=== PATIENT | female | born 1995 | race Hispanic/Latino ===

== ENCOUNTER 2025-05-31 00:16 | Emergency (ER) | payer SELFPAY ==
[2025-05-31] VITALS (11 sets, daily range): BP systolic 105–136; BP diastolic 64–80; PULSE 59–81; BMI 27.4
--- NOTE | 2025-05-31 01:11 | ED.GENMED ---
History of Present Illness
General
Chief Complaint: Chest Pain
Source: patient
Exam Limitations: none
Time Seen by Provider: 05/31/25 00:38
Nursing documentation reviewed up to this point in time: agreed with
History of Present Illness
History of Present Illness:
30-year-old female with no past medical history presents to the ER today with concerns of 1 week of chest pain and a presyncopal episode this evening. Patient reports that the onset of chest pain was a week ago and noticed that recently has
increased in severity. The patient reports that this evening, chest pain woke her up from sleep and when she went to stand, she felt very short of breath and she almost passed out and her had to catch her from nearly fainting. She has not
experienced similar symptoms in the past. She also reports shortness of breath. She notes that the pain is under her left breast. She does not take any oral contraceptives. She was on a recent flight a few days ago but reports it was like 3
hours in nature. She denies any redness or swelling in her lower extremities. Denies any back pain. She does have a cardiac history with ACS in her grandfather at age 42. She has no personal history of cardiac disease. She feels nauseous but
denies abdominal pain. She denies any fevers or chills, she deneis any cough or flu like symptpoms.
Review of Systems
Review of Systems
All Other Systems: ROS reviewed and negative except as documented in HPI and ROS
Phy Exam
Physical Exam
Physical Exam:
General: Patient has conversational dyspnea
Skin: Warm and dry, no rashes or lesions
Head: Normocephalic, atraumatic
Eyes: Sclera non-icteric. EOMs intact.
Cardiac: Regular rate and rhythm, no murmurs, no tenderness palpation left lower chest wall
Peripheral Vascular: No lower extremity swelling or edema
Pulm: Increased respiratory rate, conversational dyspnea, lungs clear bilaterally no wheezes, rales, rhonchi
Abdomen: No abdominal tenderness to palpation
Neuro: CN II-XII intact, no focal neurologic deficits.
Psychiatric: Appropriate mood and affect.
Scores
Heart Score for Chest Pain Patients
STEMI patient?: No
History: Slightly or Non-Suspicious
ECG: Normal
Age: </= 45 years
Risk Factors: No Risk Factors
Troponin: </= Normal Limit
Heart Score for Chest Pain Patients: 0
Heart Score Risk: 2.5% MACE over next 6 weeks
Course
Orders/Labs/Results
Orders:
Orders
05/31/25 00:22
Electrocardiogram (*1) Urgent
Reason for Study: Chest Pain
Cardiac Monitoring- Treatment ONCE
EKG- Treatment ONCE
IV Insert/Care/Rem.- Treatment PRN
Test Result ONCE
O2 Therapy [RESP] Urgent
Titrate/Wean O2 to maintain O2 sat greater than (%): 90
Special Instructions: Maintain sats >/=90%
Pulse Ox/spot Check [RESP] Urgent
Quantity: 1
Special Instructions: ON ROOM AIR
05/31/25 00:52
Complete Blood Count/With Diff Urgent
Comprehensive Metabolic Panel Urgent
HCG, Serum Qualitative Screen Urgent
Comment: Notify provider if positive test present
Troponin I Urgent
05/31/25 01:09
CT Chest PE Study Urgent
Comment:
Reason For Exam: syncope, cp, dizziness
05/31/25 02:56
Morphine Sulfate 6 mg IV NOW STA
05/31/25 03:11
Ketorolac [Toradol] 15 mg IV NOW STA
05/31/25 03:15
Ketorolac [Toradol] 30 mg IV NOW STA
05/31/25 03:22
Orthostatic VS- Treatment ONCE
Abnormal Lab Results
05/31/25
00:52
RBC 4.16 L 10^6/uL
(4.20-5.40)
Hgb 11.6 L g/dL
(12.0-16.0)
Hct 34.5 L %
(37.0-47.0)
Lymphocytes % 16.8 L %
(20.5-51.1)
Chloride 108 H mmol/L
(98-107)
Carbon Dioxide 16 L mmol/L
(22-30)
Glucose 114 H mg/dl
(70-99)
05/31/25 00:52
05/31/25 00:52
Vital Signs
Initial and Last Documented VS:
Initial Vital Signs
Temp Pulse Resp BP Pulse Ox
97.4 F 92 28 136/76 100
05/31/25 00:17 05/31/25 00:17 05/31/25 00:17 05/31/25 00:17 05/31/25 00:17
Last Documented Vital Signs
Temp Pulse Resp BP Pulse Ox
98.1 F 76 14 105/69 95
05/31/25 00:42 05/31/25 04:30 05/31/25 04:30 05/31/25 04:00 05/31/25 04:30
MDM/Problems Addressed
Differential Diagnosis Includes:
- The differential diagnosis includes, in no particular order and is not limited to:
- Acute coronary syndrome
- Pulmonary embolism
- Aortic dissection
- Pneumothorax
- Pneumonia
- Pericarditis
- Gastroesophageal reflux disease
- Myocardial ischemia
- Anxiety disorders
- Arrhythmia
MDM/Problems Addressed:
30-year-old female presents to the ER today with concerns of pain under her left breast for the past week along with a presyncopal episode and shortness of breath. On exam, she appears to have increased work of breathing and appears uncomfortable
secondary to the pain. Will send for CT of the chest.
CT scan of the chest is not concerning for any signs of PE or aortic dissection. Toradol significantly improved pain and patient feeling much more comfortable. She denies lightheadedness or dizziness at this time. Suspect pleurisy. Pre-syncopal
episode prior to arrival likely vasovagal in nature. Discussed case wuth ED attending. No indication for repeat troponin considering pain has been going on for a week. I stressed follow-up with cardiology, patient will be discharged with chest pain
hotline.
Chronic conditions affecting care:
n/a
*Pulse Oximetry
SaO2: 98
Oxygen Mode of Delivery: Room air
Patient hypoxic: no
*EKG
Interpreted by ED Provider?: Yes
EKG Intrepretation Date: 05/31/25
Interpretation: normal
Comparison EKG: no comparison EKG present
Heart Rate: 87
Rate: normal
Rhythm: sinus
[place]: normal axis
Ischemia: no ischemia
*Critical Care Note
Total Time (30-74mins, 75-104mins- exclusive of procedures): Not Applicable
Data Reviewed
Review of Other/Old Records Reveals: Records (no prior ER physician documentation to review no discharge summaries to review)
Source: patient and records
Update Note
Update Note:
3:22 am: update, patient reports that her dizziness and chest pain are improving but still present. CT scan negative for PE. Will trial Toradol
ED Attending Note
-
Portions of this chart may have been created with voice recognition software.� Occasional wrong word or��sound alike� substitutions may have occurred due to the inherent limitations of voice recognition software.
Discharge Plan
Departure
Patient Disposition: Home (Routine Discharge)
Date of Disposition: 05/31/25
Time of Disposition: 04:29
Patient with high blood pressure during this ER visit?: No
Condition: Good
Discharge Problem:
Pleurisy
Instructions: Chest Pain CBC Follow Up, BLOOD PRESSURE
Prescriptions:
No Action
No Current Medications
0
Referrals:
NONE,* [Family Provider, Internal Medicine]
Activity Restrictions/Additional Instructions:
Please continue to monitor your symptoms. I recommend taking ibuprofen as needed for your pain. You can take 600 to 800 mg every 6 hours. Please do not exceed 3200 mg/day.
PLEASE RETURN TO THE ER SHOULD YOU DEVELOP FAINTING SPELL, TROUBLE BREATHING, JAW PAIN, ANY ACUTE WORSENING OF SYMPTOMS, OR ANY OTHER SIGNS CONCERNING TO YOU
Interventions
Interventions:
*Risk Screen - Suicide Last Done: 05/31/25 00:17
*General Assessment Last Done: 05/31/25 00:42
*Neglect/Abuse Screening Last Done: 05/31/25 00:17
*ED COVID-19 Vaccine History Last Done: 05/31/25 00:42
*ED Influenza Vaccine History Last Done: 05/31/25 00:42
[facility] Fall Risk Assessment Tool Last Done: 05/31/25 00:44
*Nursing Disposition Last Done: 05/31/25 04:37
ED- Cardiac Assessment Last Done: 05/31/25 00:42
Discharge Date and Time
Discharge Date/Time: 05/31/25 04:42
Print Language: SLOVAK
[2025-05-31 01:14] LABS: HCG, Serum Qualitative Screen Negative
[2025-05-31 01:21] LABS: ALT (SGPT) 22 U/L (0-35); AST (SGOT) 24 U/L (14-36); Albumin 4.5 g/dl (3.5-5.0); Alkaline Phosphatase 49 U/L (38-126); Blood Urea Nitrogen 16 mg/dl (7-17); Calcium 9.5 mg/dl (8.4-10.2); Carbon Dioxide 16 mmol/L (22-30); Chloride 108 mmol/L (98-107); Estimated Creatinine Clearance 104 ml/min; Glucose 114 mg/dl (70-99); Potassium 3.6 mmol/L (3.5-5.1); Sodium 138 mmol/L (135-145); Total Protein 7.7 g/dl (6.3-8.2); eGFR > 60.00
[2025-05-31 01:22] LABS: Hematocrit 34.5 % (37.0-47.0); Hemoglobin 11.6 g/dL (12.0-16.0); Mean Corp Hgb Conc. 33.6 g/dL (33.0-37.0); Mean Corpuscular Volume 82.9 fL (81.0-99.0); Nucleated Red Blood Cells % 0 %; Platelet Count 296 10^3/uL (130-400); Red Cell Dist. Width 14.1 % (11.5-14.5)
[2025-05-31 01:35] LABS: Troponin I < 0.012 ng/ml
[2025-05-31] MEDS: TORADOL 30 MG IV (03:30)
== END 2025-05-31 04:42 | disposition home or self-care (01) ==
LOC: EMR 00:16
PROVIDERS: EMERGENCY PHYSICIAN Emergency Medicine
DX: R09.1 Pleurisy (principal)
CPT/HCPCS: 99284; 96374; 71275; 80053; 84484; 84703; 85025; 93005; Q9967